=== PATIENT | male | born 1960 | race Caucasian/White ===

== ENCOUNTER → 2018-06-05 | Outpatient (CLI) | payer OTHER ==
--- NOTE | 2018-06-05 16:21 | KCIC ---
CT scan of the paranasal sinuses without contrast 06/05/2018 CLINICAL HISTORY: Chronic sinusitis. Congestion. Headaches. TECHNIQUE: Unenhanced, contiguous, 0.625 mm axial sections were obtained through the paranasal sinuses. 2 mm reconstructed sagittal, axial and coronal images were obtained. One or more of the following individualized dose reduction techniques were utilized for this study: 1. Automated exposure control. 2. Adjustment of the mA and/or kV according to patient size. 3. Use of iterative reconstruction technique. FINDINGS: Mild to moderate mucosal thickening is seen involving the right maxillary sinus. The right maxillary sinus is hypoplastic. Mild mucosal thickening is seen involving the left maxillary sinus and the sphenoid sinus. Mild mucosal thickening is seen scattered throughout the ethmoid air cells bilaterally. No air-fluid level is seen. The left ostiomeatal unit is patent. The right ostiomeatal unit is narrowed by mucosal thickening. IMPRESSION: Mild to moderate mucosal thickening is seen throughout the paranasal sinuses as outlined above. No air-fluid level is seen. Electronically signed by: Rodriguez Leyva MD (06/05/2018 4:16 PM) [place] [id number]
== END | disposition home or self-care (01) ==
LOC: KCIC CT 14:19
PROVIDERS: ATTEND Family Medicine
DX: J32.9 Chronic sinusitis, unspecified (principal); I10 Essential (primary) hypertension; Z87.891 Personal history of nicotine dependence
CPT/HCPCS: 70486

== ENCOUNTER → 2021-01-06 | Outpatient (CLI) | payer OTHER ==
[2021-01-06 10:18] LABS: GFR 76.7; POTASSIUM 4.6 mmol/L (3.5-5.1)
[2021-01-06 10:21] LABS: CHOLESTEROL/HDL RATIO 7.1
== END ==
LOC: LAB 08:52
PROVIDERS: ATTEND Internal Medicine Cardiovascular Disease
DX: I10 Essential (primary) hypertension (principal)
CPT/HCPCS: 80048; 80061; 82088; 84244

== ENCOUNTER → 2021-04-25 | Outpatient (CLI) | payer OTHER ==
[~2021-04-25] MED LIST: ASPI-630 PO; LABE200T4 PO; RAMI10CA53 PO; TRIA1CAP3 PO
[2021-04-25 09:49] LABS: CHOLESTEROL/HDL RATIO 4.1
== END ==
LOC: LAB 08:40
PROVIDERS: ATTEND Internal Medicine Cardiovascular Disease
DX: E78.5 Hyperlipidemia, unspecified (principal)
CPT/HCPCS: 36415; 80061

== ENCOUNTER → 2021-05-05 | Outpatient (CLI) | payer OTHER | LOC: LAB 09:20 | PROVIDERS: ATTEND Internal Medicine Cardiovascular Disease | DX: E78.5 Hyperlipidemia, unspecified (principal) | CPT/HCPCS: 36415; 84443 ==